=== PATIENT | male | born 1955 | race Caucasian/White ===

== ENCOUNTER 2021-07-11 01:35 | Outpatient (CLI) | payer MEDICAID, SELFPAY ==
--- NOTE | 2021-07-11 11:00 | DI.NM_ITS ---
APPROVED REPORT Exam: Pharmacologic Patient Location: Out-Patient Room/Bed: Stress Nurse: Ingris Leo RN Ordering Provider:TIMOTHY BEAVER, Contact Number: [phone] BMI: 38.40 Baseline Rhythm: Sinus Rhythm Indications: Angina pectoris Medical History Medical History: Hypertension, hyperlipidemia, diabetes II, obesity, malignant melanoma, osteoarthrit is Cardiac Medications: Aspirin, dilaudid, lisinopril, metformin, rybelsus, sildenafil, simvastatin Allergies: Percocet, vicodin Cardiac Risk Factors: Hypertension, hyperlipidemia, diabetes II, obesity, tobacco (former), family hx Previous Cardiac Procedures: None Pretest Chest Pain Characteristics: None Exercise History: Physically active Physical Disabilities: Multiple joint replacement surgeries Lung Sounds: Diminished BLL Heart Sounds: Regular Stress Test Details Test: Exercise stress converted to pharmacologic stress due to failure to obtain a diagnostic stress test. Reason for pharmacologic stress test: changed from exercise stress test due to inability to reach t arget heart rate. Nuclear Acquisition: Rest Tc-99m/Stress Tc-99m 1 day Rest Isotope: Tc-99m Sestamibi. Dose: 10.8 Date: 07/11/2021 Injection Time: 1100 Stress Isotope: Tc-99m Sestamibi. Dose: 32.0 Date: 07/11/2021 Injection Time: 1240 HR Resting HR Supine: 84 bpm Max Heart Rate (APMHR): 156 bpm Resting HR Standin bpm Target HR (85% APMHR): 132 bpm Max HR Achieved: 121 bpm % of APMHR: 77 Recovery HR: 92 bpm BP Resting BP Supine: 114/82 mmHg Resting BP Standin/76 mmHg Max BP: 164/80 mmHg Recovery BP: 128/80 mmHg ECG Resting ECG: Sinus Rhythm Ectopy: None Stress ECG: Sinus Tachycardia ST Change: No significant ST segment changes noted, Nondiagnostic low heart rate Arrhythmia: Rare PAC and PVCs Recovery ECG: Sinus Rhythm Recovery ST Change: No significant ST segment changes noted, Nondiagnostic low heart rate Recovery Arrhythmia: None Clinical Reason for Termination: Fatigue, joint pain Stress Symptoms: General Fatigue Highest Stage Reached: Stage 3: 3.4 mph at 14% grade. Exercise capacity: 7.79 METs Rate Pressure Product: Stress ECG Conclusion 1. The resting electrocardiogram was within normal limits 2. Patient underwent a combination of low-level exercise with pharmacologic stress. Peak heart rate achieved was 77% of predicted for age. Maximum workload was 7.79 METS 3. The electrocardiographic portion of the test was nondiagnostic due to inadequate heart rate 4. See MPI report Stress Test Summary STAGE Time (mins) Speed (mph) Grade (%) HR BP SYMPTOMS METS Supine 84 114/82 Standing 83 122/76 SpO2 92% 1 3 1.7 10 109 138/84 SpO2 88% 4.6 2 6 2.5 12 119 152/90 SpO2 89% 7 1 min post Lexiscan injection 119 158/72 SpO2 87% 3 min post Lexiscan injection 111 164/80 SpO2 89% 6 min post Lexiscan injection 92 128/80 SpO2 97% Pt requested stop of exercise immediately upon entering third stage of Jason protocol due to knee migdalia n. Treadmill stopped and test changed to pharmacologic stress due to inability to reach target heart rate. Pharmacologic stress was paired with low level exercise at 1.3- 1.5 mph and 0% grade. Pt tolera jazmyn testing and pharmacologic stress well. MPI Conclusion Normal myocardial perfusion without evidence of ischemia or prior infarction EF 46%, wall motion is normal Radiologist Interpretation Radiologist agrees with Mortgage Operations Manager's Interpretation. Radiologist Interpretation by: Ander Dsouza MD Interpretation Date/Time: 07/11/2021 15:19:24
[2021-07-11] MEDS: Regadenoson 0.4 MG/5 ML SYR IVP (13:29)
== END 2021-07-11 01:55 ==
PROVIDERS: Visit Provider Family Medicine
DX: I20.8 Other forms of angina pectoris (principal)
CPT/HCPCS: 78452; 93017; J2785